=== PATIENT | female | born 1945 | race Caucasian/White ===

== ENCOUNTER → 2017-05-18 | Outpatient (CLI) | payer MEDICARE ==
--- NOTE | 2017-05-18 10:12 | RAD ---
DATE: 05/18/2017 EXAM: DIGITAL SCREEN BILAT W/CAD HISTORY: Routine screening COMPARISON: 05/14/2015 This study was interpreted with the benefit of Computerized Aided Detection (CAD). The breast parenchyma shows scattered fibroglandular densities. Breast parenchyma level B. FINDINGS: No new or enlarging breast densities are seen. Benign type calcifications are again noted. No suspicious microcalcifications have developed. IMPRESSION: Stable mammograms without evidence of malignancy. BI-RADS CATEGORY: 2 BENIGN FINDING(S) RECOMMENDED FOLLOW-UP: 12M 12 MONTH FOLLOW-UP PQRS compliance statement: Patient information was entered into a reminder system with a target due date for the next mammogram. Mammography is a sensitive method for finding small breast cancers, but it does not detect them all and is not a substitute for careful clinical examination. A negative mammogram does not negate a clinically suspicious finding and should not result in delay in biopsying a clinically suspicious abnormality. "Our facility is accredited by the [employer] Mammography [employer]."
== END | disposition home or self-care (01) ==
LOC: MAMMO 08:17
PROVIDERS: ATTEND Family Medicine
DX: Z12.31 Encounter for screening mammogram for malignant neoplasm of breast (principal)
CPT/HCPCS: G0202; 77067

== ENCOUNTER → 2018-05-25 | Outpatient (CLI) | payer MEDICARE ==
--- NOTE | 2018-05-25 09:13 | RAD ---
DATE: 05/25/2018 EXAM: MAMMO ALMA SCREENING BILATERAL HISTORY: Routine screening COMPARISON: 05/18/2017 This study was interpreted with the benefit of Computerized Aided Detection (CAD). Breast Density: SCATTERED The breast parenchyma shows scattered fibroglandular densities. Breast parenchyma level B. FINDINGS: 2-D and 3-D tomosynthesis imaging was performed in CC and MLO projections. No new or enlarging breast densities are seen. Benign type calcifications are again noted. No suspicious microcalcifications have developed. IMPRESSION: Stable mammograms without evidence of malignancy. BI-RADS CATEGORY: 2 BENIGN FINDING(S) RECOMMENDED FOLLOW-UP: 12M 12 MONTH FOLLOW-UP PQRS compliance statement: Patient information was entered into a reminder system with a target due date for the next mammogram. Mammography is a sensitive method for finding small breast cancers, but it does not detect them all and is not a substitute for careful clinical examination. A negative mammogram does not negate a clinically suspicious finding and should not result in delay in biopsying a clinically suspicious abnormality. "Our facility is accredited by the [employer] Mammography [employer]."
== END | disposition home or self-care (01) ==
LOC: MAMMO 08:23
PROVIDERS: ATTEND Family Medicine
DX: Z12.31 Encounter for screening mammogram for malignant neoplasm of breast (principal)
CPT/HCPCS: 77063; 77067

== ENCOUNTER → 2019-06-02 | Outpatient (CLI) | payer MEDICARE ==
--- NOTE | 2019-06-03 13:16 | RAD ---
DATE: 06/02/2019 EXAM: MAMMO ALMA SCREENING BILATERAL HISTORY: Routine screening COMPARISON: 05/10/2012 05/11/2013 05/11/2014 05/14/2015 05/15/2016, 05/18/2017 and 05/25/2018 mammographic exams This study was interpreted with the benefit of Computerized Aided Detection (CAD). Breast Density: HETERO The breast parenchyma is heterogenously dense, which could reduce sensitivity of mammography. Breast parenchyma level C. FINDINGS: No suspicious masses, calcifications, or distortion in the interval. IMPRESSION: Stable BI-RADS CATEGORY: 1 NEGATIVE RECOMMENDED FOLLOW-UP: 12M 12 MONTH FOLLOW-UP PQRS compliance statement: Patient information was entered into a reminder system with a target due date in one year for the next mammogram. Mammography is a sensitive method for finding small breast cancers, but it does not detect them all and is not a substitute for careful clinical examination. A negative mammogram does not negate a clinically suspicious finding and should not result in delay in biopsying a clinically suspicious abnormality. "Our facility is accredited by the [employer] Mammography [employer]."
== END | disposition home or self-care (01) ==
LOC: MAMMO 07:47
PROVIDERS: ATTEND Family Medicine
DX: Z12.31 Encounter for screening mammogram for malignant neoplasm of breast (principal); N64.89 Other specified disorders of breast
CPT/HCPCS: 77063; 77067

== ENCOUNTER 2020-01-28 14:25 | Emergency (ER) | payer MEDICARE ==
[~2020-01-28] VITALS: Ht 154.9 cm; Wt 66.0 kg
[2020-01-28 15:55] LABS: BASO % 1 % (0-3); EOS # 0.1 x10^3/uL (0.0-0.7); EOS % 1 % (0-3); HEMOGLOBIN 12.9 g/dL (12.0-15.5); LYMPH # 1.2 x10^3/uL (1.0-4.8); LYMPH % 12 % (24-48); MEAN CORPUSCULAR HEMOGLOBIN 31 pg (25-35); MEAN CORPUSCULAR HGB CONC 34 g/dL (31-37); MEAN CORPUSCULAR VOLUME 90 fL (79-100); MONO # 0.6 x10^3/uL (0.0-1.1); MONO % 7 % (0-9); NEUT # 7.6 x10^3/uL (1.8-7.7); NEUT % 80 % (31-73); PLATELET COUNT 236 x10^3/uL (140-400); RED BLOOD COUNT 4.22 x10^6/uL (3.50-5.40); RED CELL DISTRIBUTION WIDTH 12.9 % (11.5-14.5); WHITE BLOOD COUNT 9.5 x10^3/uL (4.0-11.0)
[2020-01-28 16:00] LABS: CALCIUM 8.9 mg/dL (8.5-10.1); CREATININE 1.1 mg/dL (0.6-1.0); GFR 48.4; POTASSIUM 3.5 mmol/L (3.5-5.1)
[2020-01-28 16:04] LABS: PROTHROMBIN TIME PATIENT 13.5 SEC (11.7-14.0)
--- NOTE | 2020-01-28 16:05 | RAD ---
PROCEDURE: HIP RIGHT 2V WITH PELVIS STUDY DATE: 01/28/2020 CLINICAL INDICATION / HISTORY: Right hip pain. TECHNIQUE: AP view of the pelvis and AP and frog-leg views of the right hip were obtained COMPARISON: None FINDINGS: The osseous structures are normally mineralized. There is normal bony alignment present with the femoral heads well-seated within the acetabuli. There is no evidence of acute fracture or dislocation identified. Multilevel lumbar spinal degenerative spondylosis is incidentally noted in the visualized lumbar spine. The overlying soft tissues are grossly unremarkable. IMPRESSION: Unremarkable examination of the right hip. Incidental degenerative changes in the lumbar spine.. Electronically signed by: Kendall uLna MD (01/28/2020 4:02 PM) [facility] [place]
--- NOTE | 2020-01-28 16:21 | PHYS DOC ---
Past Medical History Past Medical History: Hypertension Past Surgical History: Hysterectomy Smoking Status: Never Smoker Alcohol Use: None General Adult EDM: Chief Complaint: SKIN RASH/ABSCESS HPI: HPI: Patient is a 74 year old female presents to the ED with a chief complaint of bruising to her right thigh. Patient states that this is been present for the last 2 days. Patient states that she carried a mattress into her home 3 days ago and also carry 75 bottles of drinks into her home. Patient is not sure if she had her right thigh by mistake. Patient complains of mild pain in her right hip region. Patient does not take any blood thinners currently. Review of Systems: Review of Systems: Constitutional: Denies fever or chills. [] Eyes: Denies change in visual acuity. [] HENT: Denies nasal congestion or sore throat. [] Respiratory: Denies cough or shortness of breath. [] Cardiovascular: Denies chest pain or edema. [] GI: Denies abdominal pain, nausea, vomiting : Denies dysuria. [] Musculoskeletal: Mild right hip tenderness Integument: Bruising to the right thigh Neurologic: Denies headache, focal weakness or sensory changes. [] Heart Score: Risk Factors: Risk Factors: DM, Current or recent (<one month) smoker, HTN, HLP, family history of CAD, obesity. Risk Scores: Score 0 - 3: 2.5% MACE over next 6 weeks - Discharge Home Score 4 - 6: 20.3% MACE over next 6 weeks - Admit for Clinical Observation Score 7 - 10: 72.7% MACE over next 6 weeks - Early Invasive Strategies Allergies: Allergies: Allergies Coded Allergies Type Severity Reaction Last Updated Verified No Known Drug Allergies 01/28/20 No Physical Exam: PE: Constitutional: Well developed, well nourished, no acute distress, non-toxic appearance. [] HENT: Normocephalic, atraumatic Eyes: EOMI Neck: Normal range of motion Respiratory: No respiratory distress Abdomen: Soft, nontender Extremities: Ecchymosis to the right thigh. Mild tenderness to the right hip. Right lower extremity is not more swollen than the left. Neurologic: Alert and oriented X 3 Current Patient Data: Labs: Laboratory Tests Test 01/28/20 15:45 White Blood Count 9.5 x10^3/uL (4.0-11.0) Red Blood Count 4.22 x10^6/uL (3.50-5.40) Hemoglobin 12.9 g/dL (12.0-15.5) Hematocrit 38.0 % (36.0-47.0) Mean Corpuscular Volume 90 fL (79-100) Mean Corpuscular Hemoglobin 31 pg (25-35) Mean Corpuscular Hemoglobin Concent 34 g/dL (31-37) Red Cell Distribution Width 12.9 % (11.5-14.5) Platelet Count 236 x10^3/uL (140-400) Neutrophils (%) (Auto) 80 % (31-73) H Lymphocytes (%) (Auto) 12 % (24-48) L Monocytes (%) (Auto) 7 % (0-9) Eosinophils (%) (Auto) 1 % (0-3) Basophils (%) (Auto) 1 % (0-3) Neutrophils # (Auto) 7.6 x10^3/uL (1.8-7.7) Lymphocytes # (Auto) 1.2 x10^3/uL (1.0-4.8) Monocytes # (Auto) 0.6 x10^3/uL (0.0-1.1) Eosinophils # (Auto) 0.1 x10^3/uL (0.0-0.7) Basophils # (Auto) 0.0 x10^3/uL (0.0-0.2) Prothrombin Time 13.5 SEC (11.7-14.0) Prothrombin Time INR 1.1 (0.8-1.1) Sodium Level 138 mmol/L (136-145) Potassium Level 3.5 mmol/L (3.5-5.1) Chloride Level 102 mmol/L (98-107) Carbon Dioxide Level 27 mmol/L (21-32) Anion Gap 9 (6-14) Blood Urea Nitrogen 25 mg/dL (7-20) H Creatinine 1.1 mg/dL (0.6-1.0) H Estimated GFR (Cockcroft-Gault) 48.4 Glucose Level 109 mg/dL (70-99) H Calcium Level 8.9 mg/dL (8.5-10.1) Laboratory Tests 01/28/20 15:45 Laboratory Tests 01/28/20 15:45 Vital Signs: Vital Signs Date Time Temp Pulse Resp B/P (MAP) Pulse Ox O2 Delivery O2 Flow Rate FiO2 01/28/20 14:30 98.6 95 16 140/86 (104) 97 Room Air 98.6 EKG: EKG: [] Radiology/Procedures: Radiology/Procedures: [] Impression: X-ray of the right hip and pelvis did not show any acute fractures. Course & Med Decision Making: Course & Med Decision Making Pertinent Labs and Imaging studies reviewed. (See chart for details) Ordered x-rays and labs. X-rays do not show any acute fractures. Labs are within normal limits. PT/INR is within normal limits. Discussed results and plan of care with patient. Patient is instructed to follow up with PCP in one to 2 days. Appropriate discharge instructions given to patient to return to the ED or to seek immediate medical evaluation. Patient is instructed to return to the ED if symptoms worsen or if any concerns. Dragon Disclaimer: Dragon Disclaimer: This electronic medical record was generated, in whole or in part, using a voice recognition dictation system. Departure Departure Impression: Primary Impression: Multiple ecchymoses of thigh Condition: STABLE Referrals: REY HAM MD (PCP) Patient Instructions: Bone Bruise Additional Instructions: Please return to the ED if symptoms worsen or if any concerns. Please follow-up with PCP in 1 to 2 days. DELPHINE BARGER DO January 28, 2020 16:21
[2020-01-28 16:34] VITALS: BP 119/67
== END 2020-01-28 16:34 | disposition home or self-care (01) ==
LOC: ER 14:25
DX: S70.11XA Contusion of right thigh, initial encounter (principal); M25.551 Pain in right hip; I10 Essential (primary) hypertension; M47.816 Spondylosis without myelopathy or radiculopathy, lumbar region; Z90.710 Acquired absence of both cervix and uterus; X58.XXXA Exposure to other specified factors, initial encounter; Y93.89 Activity, other specified; Y92.89 Other specified places as the place of occurrence of the external cause; Y99.8 Other external cause status
CPT/HCPCS: 36415; 73502; 80048; 85025; 85610; 99284

== ENCOUNTER → 2020-06-13 | Outpatient (CLI) | payer MEDICARE ==
--- NOTE | 2020-06-13 16:15 | RAD ---
DATE: 06/13/2020 9:30 AM EXAM: MAMMO ALMA SCREENING BILATERAL HISTORY: Screening COMPARISON: 05/18/2017, 05/25/2018 and 06/02/2019 bilateral mammograms Bilateral CC and MLO views of the breasts were performed. Bilateral breast tomosynthesis was performed in CC and MLO projections. This study was interpreted with the benefit of Computerized Aided Detection (CAD). FINDINGS: Breast Density: SCATTERED The breast parenchyma shows scattered fibroglandular densities. Breast parenchyma level B Negative right mammogram. Left mammogram shows a 5 mm focal asymmetry in the medial periareolar left breast at the approximate 9:00 position 2 cm from the nipple that needs additional imaging with targeted left breast ultrasound. IMPRESSION: Left breast focal asymmetry, findings for which additional imaging is advised. BI-RADS CATEGORY: 0 INCOMPLETE: NEEDS ADDITIONAL IMAGING EVALUATION AND/OR PRIOR MAMMOGRAMS FOR COMPARISON. RECOMMENDED FOLLOW-UP: ADD ADDITIONAL IMAGING The patient will be contacted to return for additional imaging and a supplemental report will follow. PQRS compliance statement: Patient information was entered into a reminder system with a target due date for the next mammogram. Mammography is a sensitive method for finding small breast cancers, but it does not detect them all and is not a substitute for careful clinical examination. A negative mammogram does not negate a clinically suspicious finding and should not result in delay in biopsying a clinically suspicious abnormality. "Our facility is accredited by the [employer] Mammography Program."
== END ==
LOC: MAMMO 09:03
PROVIDERS: ATTEND Family Medicine
DX: Z12.31 Encounter for screening mammogram for malignant neoplasm of breast (principal)
CPT/HCPCS: 77063; 77067

== ENCOUNTER → 2020-06-20 | Outpatient (CLI) | payer MEDICARE ==
--- NOTE | 2020-06-20 15:20 | RAD ---
DATE: 06/20/2020 EXAM: Left breast ultrasound HISTORY: Recall from screening mammogram for left breast focal asymmetry COMPARISON: Screening mammogram 06/13/2020 TECHNIQUE: Grayscale and color Doppler images of the left breast were obtained from 8:00 to 10:00 in the area of concern. FINDINGS: There are a few prominent ducts at 8:30 2 cm from the nipple. No intraductal mass or debris identified. There is no other cystic or solid mass. IMPRESSION: No evidence of malignancy. BI-RADS CATEGORY: 2 BENIGN FINDING(S) RECOMMENDED FOLLOW-UP: 12M 12 MONTH FOLLOW-UP
== END ==
LOC: US 14:05
PROVIDERS: ATTEND Family Medicine
DX: C50.312 Malignant neoplasm of lower-inner quadrant of left female breast (principal)
CPT/HCPCS: 76641

== ENCOUNTER 2021-04-26 06:26 | Day surgery (SDC) | payer MEDICARE ==
[~2021-04-26] VITALS: Ht 154.9 cm; Wt 61.0 kg
[~2021-04-26 06:26] MED LIST: AMLO-186 PO; CALC1TAB PO; CHOL500016 PO; HYDROmorphone 2 MG/ML VIAL IVP PRN; IV RINGERS,LACTATED 1000ML 1,000 ML IV SCH; LISI1TAB37 PO; MELO7.5T29 PO; MORPHINE SULFATE 2 MG/ML INJ. IVP PRN; MULT-496 PO; PROCHLORPERAZINE 10 MG/2 ML VIAL. IVP PRN; VIT1TABL34 PO; ceFAZolin SODIUM IV Push 1 GM VIAL. IVP PRN; fentaNYL PF VIAL 100 MCG/2 ML VIAL IVP PRN
[2021-04-26 06:54] VITALS: BP 118/68
[2021-04-26] MEDS ORDERED: BUPIVACAINE-EPI 0.5%-1:200000 MPF 30 ML VIAL. ONE (07:09)
[2021-04-26] MEDS ORDERED: fentaNYL PF VIAL 100 MCG/2 ML VIAL ONE ×2 (07:49→09:23)
[2021-04-26] MEDS ORDERED: KETOROLAC 30 MG/ML VIAL. ONE (09:09)
[2021-04-26] MEDS ORDERED: ONDANSETRON PF 4 MG/2 ML VIAL. ONE (09:09)
[2021-04-26] MEDS ORDERED: SEVOFLURANE 61 TO 120 MINUTES. IH ONE (09:09)
[2021-04-26] MEDS ORDERED: PROPOFOL 10 MG/ML (20ML) VIAL. IV ONE (09:09)
[2021-04-26] MEDS ORDERED: DEXAMETHASONE SOD PHOS 4 MG/ML VIAL ONE (09:09)
[2021-04-26] MEDS ORDERED: LIDOCAINE 2% PF 5 ML VIAL. ONE (09:09)
[2021-04-26] MEDS ORDERED: HYDR-2761 PO (09:26)
--- NOTE | 2021-04-26 09:31 | DISCH ---
DISCHARGE INSTRUCTIONS Condition on Discharge Condition on Discharge: Stable Activity After Discharge Activity Instructions for Disc: Progressive ambulation Weight Bearing Status after Di: As tolerated Diet after Discharge Diet after Discharge: Regular Wound Incision Care Wound/Incision Care: Change dressing (remove dressing in 2 days may then shower) Contacting the DRMinnie after DC Call your doctor for: Concerns you may have Follow-Up Follow up with: Emily 10 days BRANDON PARKER MD Apr 26, 2021 09:31
[2021-04-26] MEDS ORDERED: HYDROcodone/APAP 5/325MG 1 TAB TABLET PO ONE (09:45)
[2021-04-26 09:59] VITALS: BP 120/58
--- NOTE | 2021-04-26 15:05 | PDOC4 ---
Operative Note Operative Note Date of surgery: 04/26/2021 Preoperative diagnosis: Left knee medial meniscus tear and loose bodies Postoperative diagnosis: Same with lateral meniscus tear and removal total of 2 loose bodies Surgeon: Cassi Assist: Jeronimo recinos Anesthesia General Estimated blood loss: 5 cc Complications: None Operative indications: Patient is a 76-year-old female with pain swelling and intermittent pain and occasional locking of her left knee and giving way. MRI shows a total of 2 loose bodies as well as medial meniscus tear and we talked through the possibility of these moving around and causing the locking up and the possibility of continued observation versus operative management and removal loose bodies. I emphasized that I cannot undo any degenerative changes that are also present the knee. Those would have to be dealt with symptomatically. Also there is a possibility of continued pain infection nerve or blood vessel damage medical or other anesthetic complications among others. She wished to proceed with surgical evaluation and treatment Operative text: Patient was identified procedure verified patient placed in the supine position on the operative table. After adequate amounts of general anesthesia were administered the left lower extremity was prepped and draped in standard sterile fashion and after timeout was performed patient procedure identified and verified the left lower extremity was exsanguinated by Esmarch bandage tourniquet inflated to 300 mmHg and a standard lateral portal was established medial portal established using spinal needle localization and the knee joint was systematically examined. 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 She had grade 2 chondromalacia of the medial and lateral tibial plateau areas and meniscal tears noted in the medial and lateral meniscus both of which were trimmed back to stable tissue using arthroscopic punch and shaver, the medial meniscus tear radiused and debridement of the tear completed through the lateral portal with removal of all the remaining meniscal fragments. A posterior medial portal was established under direct vision after placing the arthroscope through the notch from the lateral portal and no further loose bodies were noted. Joint was drained of arthroscopic fluid posterior medial incision closed with buried Vicryl suture skin closure with nylon suture following placement of half percent plain Marcaine in the portal areas. Sterile dressings were applied toes were noted be warm pink well deflation of tourniquet patient was returned to recovery room stable condition having tolerated procedure well. Jeronimo recinos assisted in patient positioning prepping draping retraction closure and dressings BRANDON PARKER MD Apr 26, 2021 15:05
== END 2021-04-26 10:37 | disposition home or self-care (01) ==
LOC: SURG 06:26
PROVIDERS: ATTEND Orthopaedic Surgery
DX: S83.242A Other tear of medial meniscus, current injury, left knee, initial encounter (principal); S83.282A Other tear of lateral meniscus, current injury, left knee, initial encounter; M22.42 Chondromalacia patellae, left knee; M23.42 Loose body in knee, left knee; I10 Essential (primary) hypertension; M81.0 Age-related osteoporosis without current pathological fracture; Z85.828 Personal history of other malignant neoplasm of skin; Z90.710 Acquired absence of both cervix and uterus; Z98.890 Other specified postprocedural states; Z79.899 Other long term (current) drug therapy; X58.XXXA Exposure to other specified factors, initial encounter; Y93.89 Activity, other specified; Y92.89 Other specified places as the place of occurrence of the external cause; Y99.8 Other external cause status
CPT/HCPCS: 29880; A4930; J0690; J1100; J1885; J2405; J2704; J3010

== ENCOUNTER → 2021-06-25 | Outpatient (CLI) | payer MEDICARE ==
[~2021-06-25] MED LIST changes: +HYDR-2761 PO; -HYDROmorphone 2 MG/ML VIAL IVP PRN; -IV RINGERS,LACTATED 1000ML 1,000 ML IV SCH; -MORPHINE SULFATE 2 MG/ML INJ. IVP PRN; -PROCHLORPERAZINE 10 MG/2 ML VIAL. IVP PRN; -ceFAZolin SODIUM IV Push 1 GM VIAL. IVP PRN; -fentaNYL PF VIAL 100 MCG/2 ML VIAL IVP PRN
--- NOTE | 2021-06-25 16:55 | RAD ---
Bilateral digital screening mammogram to include digital breast tomosynthesis (3-D mammography) 1420 CLINICAL HISTORY: Screening study. Digital MLO and CC mammograms of both breasts were obtained. Additionally digital breast tomosynthesi s images (3-D mammography) of both breasts in the CC and MLO projections were obtained. Comparison studies are dated 06/13/2020, 06/02/2019, and 05/25/2018. The breast parenchyma is heterogeneously dense which could obscure a lesion on mammography (breast de nsity C). Benign-appearing calcifications are seen within both breasts. No spiculated mass is seen. N o malignant appearing calcification or area of architectural distortion is noted. Digital breast tomosynthesis images demonstrate no spiculated mass. No malignant appearing calcificat ion is seen. Impression: BI-RADS Category 1: Negative. There is no mammographic evidence of malignancy. Routine y early screening mammography is recommended for follow-up. This examination was reviewed with the aid of computer-aided detection. A mammogram does not have 100% sensitivity and therefore a negative imaging study should not delay fu rther work up of a suspicious abnormality. Patient information is entered into the reminder system with a target due date for the next screening mammogram of 06/25/2022. "Our facility is accredited by the [employer] Mammography Program." Electronically signed by: Garfield Dunbar MD (06/25/2021 4:52 PM) [email or web address]
== END ==
LOC: MAMMO 08:04
PROVIDERS: ATTEND Internal Medicine
DX: Z12.31 Encounter for screening mammogram for malignant neoplasm of breast (principal)
CPT/HCPCS: 77063; 77067